=== PATIENT | female | born 1975 | race Caucasian/White ===

== ENCOUNTER 2019-06-19 12:36 | Emergency (ER) | payer SELFPAY ==
[2019-06-19 12:52] VITALS: RESP 16; TEMP 36.8; BMI 30.2
--- NOTE | 2019-06-19 12:55 | ED_ITS ---
Entered by Setphanie Ellington, acting as scribe for Aida Navarro DO HPI - SOB/Dyspnea General: Chief Complaint: Fever Stated Complaint: Fever/Shortness of breath Time Seen by Provider: 06/19/19 12:55 Source: patient and family Mode of arrival: ambulatory Limitations: no limitations History of Present Illness: MD elicited complaint: shortness of breath and cough Onset (ago): day(s) (3-4 days) Context: recent illness Timing: constant and progressively worsening Severity: mild Exacerbating factors: coughing and deep breaths Relieving factors: nothing Associated symptoms: Reports chest congestion, chest pain (pressure) and cough; Deny abdominal pain, nausea or vomiting Treatment prior to arrival: none Related Data: Home oxygen amount: none Review of Systems General: Reports: 10 or more systems reviewed and unremarkable except in HPI and below ENMT: Denies: throat pain Card: Reports: chest pain (pressure) Resp: Reports: chest congestion GI: Denies: abdominal pain, nausea, vomiting, diarrhea, constipation or blood in stool : Denies: difficulty urinating Musc: Denies: back pain or extremity swelling Skin/Breast: Denies: rash Neuro: Denies: headache, numbness in extremities or weakness in extremities PFSH ED PFSH: Social History Smoking and tobacco status: current every day smoker Physical Exam Const: COMMON NORMALS: no apparent distress and oriented x3 GENERAL APPEARANCE: cooperative; not in distress HENMT: COMMON NORMALS: normocephalic HEAD & SCALP: normal to inspection and normocephalic MOUTH: oral and palatal mucosa normal and lip normal THROAT: posterior oropharynx normal and tonsils normal Neck/C-Spine: COMMON NORMALS: full ROM, no lymphadenopathy, supple and no meningeal signs GENERAL: Yes normal visual inspection and Yes trachea midline Chest: COMMONS NORMALS: inspection of chest normal Resp: COMMON NORMALS: normal respiratory effort and clear to auscultation bilaterally EFFORT & INSPECTION: Yes able to speak in complete sentences and No respiratory distress AUSCULTATION: clear to auscultation bilaterally, no rales, no rhonchi and no wheezes Cardio: COMMON NORMALS: regular rate, regular rhythm, S1 normal heart sound, S2 normal heart sound and no murmurs RATE: regular rate RHYTHM: regular rhythm HEART SOUNDS: S1 normal and S2 normal PERIPHERAL PULSES: radial pulses present and dorsalis pedis pulses present GI: COMMON NORMALS: normal to inspection, nondistended, normoactive bowel sounds, soft to palpation and non-tender INSPECTION: Yes normal to inspection AUSCULTATION: Yes normoactive bowel sounds PALPATION: Yes soft, No tender, No guarding and No rigid RECTAL EXAM: deferred : COMMON NORMALS: Yes no CVA tenderness BLADDER/KIDNEY EXAM: Yes no CVA tenderness Back/Pelvis: COMMON NORMALS: no CVA tenderness Extremity: COMMON NORMALS: normal to inspection, full ROM, normal capillary refill, no calf tenderness and no pedal edema Neuro: COMMON NORMALS: oriented x3, CN's II-XII intact bilaterally, moves all extremities and no focal motor deficits MENINGEAL SIGNS: Yes no meningeal signs Skin: COMMON NORMALS: no rashes or lesions noted GENERAL SKIN EXAM: no rashes or lesions noted Course Vital Signs: Vital signs: Vital Signs Temperature 98.2 F 06/19/19 12:52 Pulse Rate 88 06/19/19 15:51 Respiratory Rate 19 H 06/19/19 15:51 Blood Pressure 129/87 06/19/19 15:51 Pulse Oximetry 97 06/19/19 15:51 MDM - SOB/Dyspnea MDM Narrative: Medical decision making narrative: 1525: pt is negative fro influenza, she does not meet criteria to be tested for covid-19 per cdc guidelines so I will send her home to self quarantine for 12 days and drink plenty of fluids and get plenty of rest. she will need to return if any worse and will f/u with pcp in 2-3 days Lab Data: Attestation: I reviewed the patient's lab results. Labs: Lab Results 06/19/19 Range/Units 13:20 Influenza Type A A g Negative (Negative) POC Influenza B Ag Negative (Negative) Imaging Data^: CXR: Radiologist's impression: Signed Patient: Zayra Herrera #: [id number] : 1975Acct#:[id number] Age/Sex: 43 / FADM Date: 06/19/19 Loc: ERRoom/Bed: Attending Dr: Ordering Provider/Ordering MD: Aida Navarro DO Date of Service: 06/19/19 Procedure(s): XR chest 1V portable [id number] Accession Number(s): [id number] Report Number: [id number] WS: [id number] XR chest 1V portable [id number] REASON FOR EXAM: pneumonia FINDINGS: The heart and mediastinal interfaces normal. The lung [place] are well aerated. There is no pneumonia, pleural effusion, pulmonary edema, No pneumothorax. The apices and hilum are normal. No osseous abnormalities. XR/XR chest 1V portable [id number] IMPRESSION: Negative chest for active pathology. Discharge Plan Discharge Patient Disposition: Home, Self-Care Clinical Impression: Bronchitis with bronchospasm Condition: Stable Prescriptions: New albuterol sulfate 90 mcg/actuation HFA aerosol inhaler 2 inh INHALATION Q4H PRN (Reason: bronchospasm) Qty: 6.7 RF: 0 No Action ibuprofen 200 mg Tablet 200 mg PO Q6H PRN (Reason: Pain) RF: 0 Discharge Orders: Discharge Order (Routine); Ordered 06/19/19 Ordered By: Aida Navarro Discharge Diet: Advance as tolerated Discharge Activity: Return to work/school after cleared by PCP/Specialist Activity Restrictions/Additional Instructions: self quarantine for 12 days case management will get you set up with a PCP that you must see in the next 1-2 days, return if worse, any problem, any change, tylenol as needed Stand Alone Forms: Work/School Release Discharge Date/Time: 06/19/19 15:54 Coding Level of Care Code ED Wound Care Physician for Chg Fwd Exam Comprehensive The documentation recorded by the Chandana goetz Bridget Annette, accurately reflects the service I personally performed and the decisions made by Ramon guerrero Sonia M, DO
--- NOTE | 2019-06-19 13:11 | XR_ITS ---
WS: [id number] XR chest 1V portable [id number] REASON FOR EXAM: pneumonia FINDINGS: The heart and mediastinal interfaces normal. The lung [place] are well aerated. There is no pneumonia, pleural effusion, pulmonary edema, No pneumothorax. The apices and hilum are normal. No osseous abnormalities. XR/XR chest 1V portable [id number] IMPRESSION: Negative chest for active pathology.
[2019-06-19 13:25] VITALS: O2SAT 95
[2019-06-19] MEDS: acetaminophen 500 mg Tablet 1000 MG PO (13:27)
[2019-06-19 14:04] LABS: Influenza A by IFA Negative (Negative); Influenza B by IFA Negative (Negative)
[2019-06-19 15:51] VITALS: BP 129/87; PULSE 88; RESP 19; O2SAT 97
--- NOTE | 2019-06-20 09:18 | DCPLANNER ---
marina dry dock manager was asked to speak with patient about getting established with a primary care physician. marina dry dock manager called patient, unable to speak with patient at this time, a voicemail was left for patient to return to return transplant case manager phone call.
--- NOTE | 2019-06-23 15:47 | DCPLANNER ---
Patient returned family independence case manager phone call, stated that she would like help in getting established with a primary care physician. regional commercial sales manager asked if she would like help in getting established with a primary care, patient stated that she would. regional commercial sales manager [place] [facility] [place] with Zunilda, a follow up appointment was scheduled for Sunday, June 25, 2019 at 10:30 with STATION USHER, Linda Diaz. regional commercial sales manager called patient and informed patient of the scheduled appointment. regional commercial sales manager also told patient that since the patient does not have insurance and she has not had a chance to fill out the financial services specialist application that patient may be required to pay something at time of appointment, that she may want to call the clinic and ask the clinic what she will be required to pay. regional commercial sales manager has mailed patient both of the financial applications to fill out and turn back in.
== END 2019-06-19 15:54 | disposition home or self-care (01) ==
PROVIDERS: Emergency Provider Emergency Medicine
DX: J20.9 Acute bronchitis, unspecified (principal); F17.200 Nicotine dependence, unspecified, uncomplicated
CPT/HCPCS: 12345; 71045; 87804; 99282; 99283

== ENCOUNTER → 2020-01-18 17:16 | Outpatient (BNVA) | payer SELFPAY | PROVIDERS: Visit Provider Nurse Practitioner Family | DX: M25.572 Pain in left ankle and joints of left foot (principal) | CPT/HCPCS: 73610 ==